=== PATIENT | male | born 1965 | race Caucasian/White ===

== ENCOUNTER 2019-03-14 19:39 | Inpatient (IN) | payer BC ==
[~2019-03-14] VITALS: Ht 188 cm; Wt 169.7 kg
[~2019-03-14 19:39] MED LIST: NO HOME MEDICATIONS; PROTONIX40 MG PO
[2019-03-14] MEDS ORDERED: DIOVAN HCT 12.51 TA2 PO (20:13)
[2019-03-14] MEDS ORDERED: LASIX 80MG TABL80 MG PO (20:14)
[2019-03-14] MEDS ORDERED: ALDACTAZIDE 251 TAB PO (20:14)
[2019-03-14 20:21] LABS: BASO # 0.1 (0.0-0.2); BASO % 0.5 % (0.0-2.0); EOS # 0.1 (0.0-0.7); EOS % 1.4 % (0-4.0); GRAN # 7.3 (1.4-6.5); GRAN % 72.8 % (42.2-75.2); HEMATOCRIT 45.9 % (42.0-52.0); HEMOGLOBIN 15.6 g/dl (13.5-18.0); LYMPH # 1.6 (1.2-3.4); LYMPH % 16.4 % (20.0-51.0); MEAN CELL VOLUME 88 fl (80.0-100.0); MEAN CORPUSCULAR HEMOGLOBIN 30 pg (27.0-31.0); MEAN CORPUSCULAR HGB CONC 34 g/dl (33.0-37.0); MEAN PLATELET VOLUME 9.9 fl (7.4-10.4); MONO # 0.9 (0.1-0.6); MONO % 8.5 % (1.7-9.3); PLATELET COUNT 183 K/mm3 (130-400); RED BLOOD COUNT 5.19 M/mm3 (4.20-5.60); REDCELL DISTRIBUTION WIDTH-CV 12.7 % (11.5-14.5)
[2019-03-14 20:27] LABS: PROTHROMBIN TIME 11.6 SECONDS (9.7-12.8)
[2019-03-14 20:30] LABS: PARTIAL THROMBOPLASTIN TIME 32.8 SECONDS (26.0-37.0)
[2019-03-14 20:34] LABS: ALANINE AMINOTRANSFERASE 31 U/L (21-72); ALBUMIN 4.5 gm/dL (3.5-5.0); ALKALINE PHOSPHATASE 62 U/L (50-136); ANION GAP 11 mmol/L (7-16); AST,SGOT 29 U/L (15-37); BILIRUBIN,TOTAL 0.8 mg/dL (0.0-1.0); BLOOD UREA NITROGEN 13 mg/dL (9-20); CALCIUM 9.3 mg/dL (8.4-10.2); CARBON DIOXIDE 29 mmol/L (22-30); CHLORIDE 99 mmol/L (98-107); CREATININE, serum 1.21 (0.66-1.25); GLUCOSE 110 mg/dL (74-106); SODIUM 139 mmol/L (137-145); TOTAL PROTEIN 7.7 gm/dL (6.4-8.2)
[2019-03-14 20:41] LABS: ERYTHROCYTE SEDIMENTATION RATE 10 mm/hr (0-30)
[2019-03-14 20:46] LABS: TROPONIN-I < 0.012 ng/mL (0.000-0.035)
[2019-03-14] MEDS ORDERED: DIOVAN/HCT 12.51 TAB PO (23:05)
[2019-03-14] MEDS ORDERED: ALDACTONE50 MG PO (23:07)
[2019-03-14] MEDS ORDERED: PROTONIX 40MG T40 MG PO (23:08)
[2019-03-14] MEDS ORDERED: ASPIRIN 81M81 MG/TA2 PO (23:09)
[2019-03-14] MEDS ORDERED: FLOMAX 0.40.4 MG/CAP PO (23:35)
[2019-03-15] VITALS (9 sets, daily range): BP systolic 108–145; BP diastolic 53–77; PULSE 73–87; TEMP 98.2–100.6
--- NOTE | 2019-03-15 00:20 | NUR ---
PT ARRIVED VIA GURNEY AND WAS ABLE TO AMBULATE INTO ROOM AND TO BED. PT WAS GIVEN A SANDWICH BOX AND JUICE, BECAUSE HE HAD NOT EATEN SUPPER. PT DENIES PAIN OR DISCOMFORT, ONLY FEELS SOB. PLACED OXYGEN ON AT 2L/NC, BUT PT TOOK OFF BECAUSE HE DID NOT LIKE HOW IT FELT ON HIS FACE. PT A/O X4, HAS DRSG ON RLE, DUE TO ULCER THAT IS BEING TAKEN CARE OF AT A [facility]. DRSG WAS CHANGED 03/14 AND IS CHANGED EVERY OTHER DAY. PT REQUEST NOT TO TAKE OFF. DRSG IS CLEAN, DRY, AND INTACT. PT HAS NO FURTHER NEEDS, CALL LIGHT WITHIN REACH.
[2019-03-15 02:26] LABS: BASO # 0.1 (0.0-0.2); BASO % 0.5 % (0.0-2.0); EOS # 0.2 (0.0-0.7); EOS % 1.3 % (0-4.0); GRAN # 8.5 (1.4-6.5); GRAN % 73.2 % (42.2-75.2); HEMOGLOBIN 14.9 g/dl (13.5-18.0); LYMPH % 16.9 % (20.0-51.0); MEAN CELL VOLUME 87 fl (80.0-100.0); MEAN CORPUSCULAR HEMOGLOBIN 30 pg (27.0-31.0); MEAN CORPUSCULAR HGB CONC 35 g/dl (33.0-37.0); MEAN PLATELET VOLUME 9.9 fl (7.4-10.4); MONO # 0.9 (0.1-0.6); MONO % 7.8 % (1.7-9.3); PLATELET COUNT 160 K/mm3 (130-400); RED BLOOD COUNT 4.93 M/mm3 (4.20-5.60); REDCELL DISTRIBUTION WIDTH-CV 12.7 % (11.5-14.5)
[2019-03-15 02:37] LABS: CREATININE, serum 1.08 (0.66-1.25); POTASSIUM 3.6 mmol/L (3.4-5.0)
--- NOTE | 2019-03-15 03:03 | NUR ---
PT WAS MADE AWARE THAT HE WAS ON CONTACT PRECAUTIONS. PT DID NOT LIKE THAT HE WAS PLACED ON CONTACT PRECAUTIONS AND GOT UPSET. PT THREATENING TO LEAVE THIS AFTERNOON AGAINST MEDICAL ADVICE. PT ALSO, THOUGHT TO TRANSFER TO ANOTHER HOSPITAL, BUT WAS ADVISED THAT HE WOULD HAVE TO BE IN CONTACT PRECAUTIONS THERE WELL. PT ADVISES THAT HE WILL LEAVE AND IT IS NOT IMPORTANT IF HE GETS HIS PROBLEM TAKEN CARE OF. TRIED TO REASON WITH HIM, BUT WILL NOT LISTEN.
[2019-03-15 03:08] LABS: COLLECTION METHOD CLEAN CATCH
[2019-03-15 03:13] LABS: PH 6 (5-8); SQUAMOUS EPITHELIAL None Seen /hpf; URINE APPEARANCE Clear; URINE BACTERIA None Seen /hpf; URINE BILIRUBIN Negative (NEGATIVE); URINE BLOOD Negative (NEGATIVE); URINE COLOR Yellow; URINE GLUCOSE Negative (NEGATIVE); URINE KETONE Negative (NEGATIVE); URINE LEUKOCYTE ESTERASE Negative (NEGATIVE); URINE NITRATE Negative (NEGATIVE); URINE PROTEIN(semi-quant) Negative (NEGATIVE); URINE RBC 0-2 /hpf; URINE UROBILINOGEN >=4.0 mg/dL (NEGATIVE); URINE WBC 0-2 /hpf
--- NOTE | 2019-03-15 05:54 | NUR ---
PT'S HEPX AT 0235 WAS 1.12, STOPPED HEPARIN AND THEN SCHEDULED A REDRAW AT 0435. THEN AT 0520 RESULTS FROM REDRAW OF HEPX WAS 0.33, DECREASED BY 3ML/HR AND RAN HEPARIN AT 20 ML/HR. RESCHEDULED LABS FOR HEPX AT 1120 PER PROTOCOL. PT HAS C/O LEFT SIDE PAIN, GAVE NORCO FOR PAIN. NO FURTHER NEEDS, CALL LIGHT WITHIN REACH.
--- NOTE | 2019-03-15 08:08 | NUR ---
PT WAS GIVEN PAIN MEDICATION AROUND 0520 THIS AM AND WAS ADVISED TO CALL IF PAIN NOT RESOLVED IN 45 MINUTES. PT IN BED WITH HOB AT 30 DEGREE ANGLE WITH 02 ON AT 2L/NC. PT DENIED ANY FURTHER NEEDS, AND CALL LIGHT WITHIN REACH.
--- NOTE | 2019-03-15 08:40 | NUR ---
Pt alert and oriented. Pt has pain rated 6/10 in chest. Pt am assessment completed. Pt IV patent no redness or infiltration. Pt pain managed with PRN [place]. Pt remains on contact precautions for the suspected conjunctivitis in right eye. Pt right eye slightly red this am. Pt has ulcers on right lower extremity that is wrapped with gauze and kari wrap and dressing changes completed by Dr. Schmitt's nurse every other day. Dressing is clean and dry. Pt has call light in reach and Heparin gtt running per orders and next Hep Xa at 1120.
--- NOTE | 2019-03-15 09:58 | NUR ---
Initial visit; Nurse with patient, [employer] Concrete Washer offered Thee God's blessings and will look in on him at a more convenient time.
--- NOTE | 2019-03-15 10:32 | NUR ---
Pt Heparin gtt and NS discontinued this am. Pt started on Eliquis per orders. Pt rates pain 2/10 after NORCO given. Pt has family at bedside and remains on contact precautions. Pt has call light in reach.
--- NOTE | 2019-03-15 11:16 | NUR ---
Pt having ECHO completed now.
--- NOTE | 2019-03-15 12:42 | NUR ---
Pt rates pain 6/10 after ECHO and having to be moved around alot. Pt given PRN NORCO as ordered. Pt ordering lunch now. Pt has call light in reach and contact precautions in place.
--- NOTE | 2019-03-15 14:25 | NUR ---
SW attended clinical rounds to discuss discharge planning. Patient lives independently at home. 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 Patient's PCP is Dr Swanson and he obtains prescriptions from [facility]. Patient does not use any DME or home health. Patient does not have a DPOA-HC but is working with his county attorney to complete advcanced directives. SW does not anticipate any discharge needs.
--- NOTE | 2019-03-15 16:50 | NUR ---
Pt pain rated 8/10 after sleeping and wants pain med increased if possible and zofran added. Wendie RAMIREZ updated and new orders given and pt given PRN NOr[place] as ordered. Pt has call light in reach.
--- NOTE | 2019-03-15 19:02 | NUR ---
Pt given 3rd dose of [place] for pain not managed with two tabs at 1650. Pt states pain is starting to go down some with rest and head of bed elevated but requests pain medicine to be increased if needed. Pt report given to Aurora GALAN and shift change completed.
--- NOTE | 2019-03-15 21:00 | NUR ---
Shift assessment complete. Patient in bed, awake. States pain is 4/10 in chest d/t PE. Prn pain medication given per pt request. Denies further needs at this time. Will continue to monitor.
[2019-03-16] VITALS (7 sets, daily range): BP systolic 118–136; BP diastolic 51–103; PULSE 76–86; TEMP 97.6–100.2
--- NOTE | 2019-03-16 03:33 | NUR ---
Patient in bed, awake. States pain 6/10 and is having difficulty sleeping. Prn pain medication given as ordered. BP slightly elevated d/t pain. Will recheck. Temp 99.0. Patient instructed to C&DB while awake to avoid pneumonia. Patient verbalized understanding. Denies further needs at this time, will continue to monitor.
[2019-03-16 06:48] LABS: BASO % 0.2 % (0.0-2.0); EOS # 0.1 (0.0-0.7); EOS % 0.7 % (0-4.0); GRAN # 10.2 (1.4-6.5); GRAN % 77.5 % (42.2-75.2); HEMATOCRIT 46.2 % (42.0-52.0); HEMOGLOBIN 15.5 g/dl (13.5-18.0); LYMPH # 1.5 (1.2-3.4); LYMPH % 11.4 % (20.0-51.0); MEAN CELL VOLUME 90 fl (80.0-100.0); MEAN CORPUSCULAR HEMOGLOBIN 30 pg (27.0-31.0); MEAN CORPUSCULAR HGB CONC 34 g/dl (33.0-37.0); MEAN PLATELET VOLUME 10.2 fl (7.4-10.4); MONO # 1.3 (0.1-0.6); MONO % 9.7 % (1.7-9.3); PLATELET COUNT 185 K/mm3 (130-400); RED BLOOD COUNT 5.12 M/mm3 (4.20-5.60); REDCELL DISTRIBUTION WIDTH-CV 13.1 % (11.5-14.5)
[2019-03-16 06:56] LABS: CALCIUM 9.2 mg/dL (8.4-10.2); CREATININE, serum 1.01 (0.66-1.25); POTASSIUM 4.2 mmol/L (3.4-5.0)
--- NOTE | 2019-03-16 10:24 | NUR ---
Follow-up visit with patient; Thee seems to be in a good frame of mind and talks about his health and his future. National Expansion Recruiter wishes him well and offered prayer.
--- NOTE | 2019-03-16 11:37 | NUR ---
during exercise patients SPO2 dropped to 84% Patient recovered to 90% with 3lpm.
--- NOTE | 2019-03-16 14:43 | NUR ---
Report given to Juan GALAN
--- NOTE | 2019-03-16 20:00 | NUR ---
Shift assessment complete. Patient in bed, awake. Family at bedside. Patient had removed oxygen. 93% on room air, resting. Reminded patient that RT has evaluated his oxygen needs, and he required 5L when ambulating. Oxygen placed back on. Patient used IS several times, up to 2250. Pain 6/10, prn pain medication given. Also verified with Tube Former Operator that contact precautions could be dc'ed for conjuctivitis, antibiotic eye drops have been administered, scheduled, for over 24 hours. Patient ok with plan, and verbalized understanding about the importance of wearing his oxygen. Denies further needs at this time. Will continue to monitor.
[2019-03-17 00:36] VITALS: BP 137/70; PULSE 85; TEMP 99.1
[2019-03-17 04:00] VITALS: BP 126/68; PULSE 92; TEMP 98.7
[2019-03-17 07:32] VITALS: BP 141/79; PULSE 71; TEMP 97.9
--- NOTE | 2019-03-17 08:27 | NUR ---
Assessment completed, alert/oriented, vital signs stable, o2 sats 95% on 3L. via NC, lungs CTA/ diminished in left middle/ lower lobes, heart RRR/distal pulses are palpable, has reviewed chest CT and has ordered a repeat scan to try and get better quality image to give definative diagnosis, patient understands and agreeable, patient denies other needs at this time
[2019-03-17 09:13] LABS: BASO % 0.2 % (0.0-2.0); EOS # 0.1 (0.0-0.7); EOS % 0.9 % (0-4.0); GRAN # 10.5 (1.4-6.5); GRAN % 83.9 % (42.2-75.2); HEMATOCRIT 44.2 % (42.0-52.0); HEMOGLOBIN 14.9 g/dl (13.5-18.0); LYMPH # 1.2 (1.2-3.4); LYMPH % 9.3 % (20.0-51.0); MEAN CELL VOLUME 90 fl (80.0-100.0); MEAN CORPUSCULAR HEMOGLOBIN 30 pg (27.0-31.0); MEAN CORPUSCULAR HGB CONC 34 g/dl (33.0-37.0); MEAN PLATELET VOLUME 10.1 fl (7.4-10.4); MONO # 0.7 (0.1-0.6); MONO % 5.3 % (1.7-9.3); PLATELET COUNT 199 K/mm3 (130-400)
--- NOTE | 2019-03-17 09:44 | NUR ---
Follow-up visit; Patient thanked Brand Recorder for looking in on him and wishing him well.
[2019-03-17 11:38] VITALS: BP 135/66; PULSE 71; TEMP 98.2
[2019-03-17 11:53] VITALS: BP 130/65; PULSE 81; TEMP 98.5
[2019-03-17] MEDS ORDERED: NORCO 325 MG-51 TAB PO (15:43)
[2019-03-17] MEDS ORDERED: ZITHROMAX 250M250 MG PO (15:49)
[2019-03-17] MEDS ORDERED: PREDNISONE10 MG PO (15:51)
[2019-03-17 15:54] VITALS: BP 130/65; PULSE 81; TEMP 98.5
--- NOTE | 2019-03-17 16:52 | NUR ---
COLIN informed that patient will need home O2. COLIN met with patient about DME choice. Patient originally chose [facility] but they are unable to set up wth O2 today. Patient then chose [facility]. SW faxed the order and contacted [facility].
--- NOTE | 2019-03-17 17:39 | NUR ---
discharge orders reviewd, instructed to follow up as scheudled, instructed to take meds as prescribed, [facility] [place]Azithromycin[facility], set up for home o2/ portable tank delivered, IV and tele removed, leaving with a friend, [place] NENA escorted out the door
== END 2019-03-17 17:40 | disposition home or self-care (01) | DRG 205 ==
LOC: COL.ER 19:39 → MEDICAL 22:04
PROVIDERS: Family Medicine; Nurse Practitioner Family; Physician Assistant; ADMIT Internal Medicine
DX: E66.2 Morbid (severe) obesity with alveolar hypoventilation (principal); J96.01 Acute respiratory failure with hypoxia; Z68.42 Body mass index [BMI] 45.0-49.9, adult; L97.919 Non-pressure chronic ulcer of unspecified part of right lower leg with unspecified severity; I10 Essential (primary) hypertension; I87.8 Other specified disorders of veins; R07.89 Other chest pain; H10.9 Unspecified conjunctivitis; I73.9 Peripheral vascular disease, unspecified; Z95.820 Peripheral vascular angioplasty status with implants and grafts; Z79.82 Long term (current) use of aspirin; Z88.0 Allergy status to penicillin; Z88.1 Allergy status to other antibiotic agents; Z91.19 Patient's noncompliance with other medical treatment and regimen
CPT/HCPCS: 99222-AI; 99233-AI; A9284; J1644; J2405; J7030; Q9967